=== PATIENT | male | born 1990 | race Caucasian/White ===

== ENCOUNTER 2016-09-17 17:04 | Emergency (ER) | payer OTHER ==
[2016-09-17] MEDS ORDERED: FLEXERIL PO ONE (17:45)
[2016-09-17] MEDS ORDERED: NORCO-10 PO ONE (17:45)
--- NOTE | 2016-09-17 17:49 | Diag Imaging Result Document ---
PROCEDURE NAME: HAND COMPLETE LEFT - 09/17/2016 LEFT HAND 3 VIEWS: COMPARISON: None. FINDINGS: Bones are intact and normally aligned. Joint spaces and soft tissues are clear. IMPRESSION: Negative exam.
--- NOTE | 2016-09-17 17:49 | PROVIDER DOCUMENTATION ---
HPI-Musculoskeletal Pain/Inj - GENERAL Chief Complaint: Extremity Injury Stated Complaint: WORK RELATED INJURY Time Seen by Provider: 09/17/16 17:45 Source: patient - HX OF PRESENT ILLNESS-MUSKULOSKELTAL Nature of Presenting Problem: 26 y/o WM c/o left hand pain after dropping steel bar on it about 1 hour ago. Pin point pain to the dorsum, with radiation throughout. Not UTD on Tetanus Review of Systems - Adult - REVIEW OF SYSTEMS - ADULT Constitutional: reports: no symptoms reported Eyes: reports: no symptoms reported Ears, Nose, Mouth & Throat: reports: no symptoms reported Cardiovascular: reports: no symptoms reported Respiratory: reports: no symptoms reported Gastrointestinal: reports: no symptoms reported Genitourinary: reports: no symptoms reported Musculoskeletal: reports: no symptoms reported Integumentary: reports: no symptoms reported Neurological: reports: no symptoms reported Psychiatric: reports: no symptoms reported Endocrine: reports: no symptoms reported Hematologic/Lymphatic: reports: no symptoms reported Allergic/Immunologic: reports: no symptoms reported All Other Systems: Reviewed and Negative Past History - Adult - PAST MEDICAL HISTORY-ADULT Review of Records: reports: Old Records Reviewed, Nursing Assessment Review, Medications Reviewed Major Childhood Illnesses: reports: denies history Cardiovascular: reports: denies history Respiratory: reports: denies history Gastrointestinal: reports: denies history Genitourinary: reports: denies history Musculoskeletal: reports: denies history Neurological: reports: denies history Endocrine/Immune: reports: denies history Other Conditions: reports: denies history - FAMILY HISTORY Family History: reviewed, not pertinent - SOCIAL HISTORY Smoking: less than 1 pack/day Provider spent 3-5 mins advising pt. on dangers of tobacco.: Discussed manners to quit use, and f/u contacts for add'l counseling. Substance Use: none/never Alcohol Use Frequency: occasionally Living Situation: family Physical Exam-Injury Related - Physical Exam-Injury Related Initial Vital Signs Reviewed: Yes General Appearance: appears well, alert, no apparent distress Eyes: PERRL/EOMI, pink conjunctivae Head, Ears, Nose, Mouth & Throat: normocephalic/atraumatic, moist mucous membranes Neck: normal inspection Respiratory: chest non-tender, lungs clear, normal breath sounds, no pleuratic chest pain, no respiratory distress, no accessory muscle use Cardiovascular: normal peripheral pulses, regular rate, rhythm Peripheral Pulses: radial (R): 2+, radial (L): 2+ Extremity: normal range of motion, normal gait, other (abrasions to the dorsum of the left hand. ttp throught the dorsum, no pain with axial loading of the thumb.) Integumentary: normal color, warm/dry, blanching Neurologic: grossly normal, no motor/sensory deficits Psych/Mental Status: normal mood/affect, normal thought content, normal thought process, oriented x 3 - Gl[place]ow Coma Score Best Eye Response ([place]): (4) open spontaneously Best Verbal Response ([place]): (5) oriented Best Motor Response ([place]): (6) obeys commands Progress - PLAN OF CARE/RESULTS Progress/Plan/Lab Results: Vital Signs Temp 09/17/16 17:17 98.8 F No Known Allergies Allergy (Verified 09/17/16 17:20) Acetaminophen with Codeine [Tylenol with Codeine #3] 1 each PO Q4H PRN PRN #7 tablet 09/17/16 Cyclobenzaprine [Flexeril] 10 mg PO TID #20 tablet 09/17/16 Mupirocin Ointment [Bactroban Ointment] 1 applicatn TOP TID #1 tube 09/17/16 Orders Category Date Time Status Wound Care DIRECTED Care 09/17/16 17:50 Active Wrist Splint DIRECTED Care 09/17/16 17:47 Active HAND COMPLETE LEFT [RAD] Stat Exams 09/17/16 17:21 Draft Cyclobenzaprine [Flexeril] Med 09/17/16 17:45 Discontinued 10 mg PO NOW ONE Hydrocodone/APAP 10 mg/325 mg [[place]-10] Med 09/17/16 17:45 Discontinued 1 each PO NOW ONE - XRAY 1 XRAY: Left XRAY Study: Hand Impression: Normal (nad per radiology) Departure - Departure Time of Disposition Order: 17:48 DIAGNOSIS: Hand contusion Qualifiers: Encounter type: initial encounter Laterality: left Qualified Code(s): S60.222A - Contusion of left hand, initial encounter Disposition: HOME 01 Certified Medical Emergency: Emergent Condition: Stable Additional Instructions: Follow up with Dr. Singh if you continue having pain ED Follow Up Instructions: You have been treated by a care provider in the Emergency Department. These instructions are being provided to you so you can have an understanding of how to care for yourself upon discharge. Upon discharge from the Emergency Department, you are responsible for making arrangements for follow-up care by a physician of your choice. Take all prescribed medications as directed. Return to the Emergency Department immediately for any new or worsening symptoms. You may call the Physician Referral phone number at [phone] to obtain a list of Physicians who are taking new patients. Prescriptions: Mupirocin Ointment [Bactroban Ointment] 1 applicatn TOP TID #1 tube Cyclobenzaprine [Flexeril] 10 mg PO TID #20 tablet Acetaminophen with Codeine [Tylenol with Codeine #3] 1 each PO Q4H PRN PRN #7 tablet PRN Reason: Pain Referrals: Braulio Cai MD [Primary Care Provider] - Marysol Singh MD [STAFF PHYSICIAN] -
== END 2016-09-17 19:28 | disposition home or self-care (01) ==
LOC: P.ED 17:04
DX: S60.222A Contusion of left hand, initial encounter (principal); M79.642 Pain in left hand; S60.512A Abrasion of left hand, initial encounter; W20.8XXA Other cause of strike by thrown, projected or falling object, initial encounter; F17.210 Nicotine dependence, cigarettes, uncomplicated; Z71.6 Tobacco abuse counseling
CPT/HCPCS: 99283